=== PATIENT | female | born 1950 | race Native Hawaiian/Other Pacific Islander ===

== ENCOUNTER 2017-11-04 12:55 | Outpatient (CLI) | payer OTHER ==
[2017-11-04 14:16] LABS: PLATELET COUNT 217 K/uL (152-353)
== END 2017-11-04 19:55 | disposition home or self-care (01) ==
LOC: LAB 12:55
PROVIDERS: Nurse Practitioner Family
DX: Z00.00 Encounter for general adult medical examination without abnormal findings (principal); E66.9 Obesity, unspecified; E78.5 Hyperlipidemia, unspecified; Z79.899 Other long term (current) drug therapy
CPT/HCPCS: 80053; 80061; 83036; 84436; 84443; 85027

== ENCOUNTER 2018-12-07 08:53 | Outpatient (CLI) | payer OTHER | END 2018-12-07 21:49 | disposition home or self-care (01) | LOC: MAMMO 08:53 | DX: Z12.31 Encounter for screening mammogram for malignant neoplasm of breast (principal) ==

== ENCOUNTER 2019-03-05 09:56 | Emergency (ER) | payer OTHER ==
[~2019-03-05] VITALS: Ht 160 cm; Wt 72.6 kg
[2019-03-05 10:02] VITALS: TEMP 98.3
[2019-03-05 12:04] VITALS: BP 172/77
== END 2019-03-05 12:04 | disposition home or self-care (01) ==
LOC: ED 09:56
PROC: 0HQFXZZ Repair Right Hand Skin, External Approach (ICD-10-PCS; principal; 2019-03-05)
DX: S61.411A Laceration without foreign body of right hand, initial encounter (principal); W22.8XXA Striking against or struck by other objects, initial encounter; Y92.89 Other specified places as the place of occurrence of the external cause
CPT/HCPCS: 90471; 90715; 99283; J7040

== ENCOUNTER 2019-03-07 10:01 | Emergency (ER) | payer OTHER ==
[~2019-03-07] VITALS: Ht 160 cm; Wt 72.6 kg
[2019-03-07 10:14] VITALS: TEMP 97.9
[2019-03-07 10:30] VITALS: BP 167/81
== END 2019-03-07 10:34 | disposition home or self-care (01) ==
LOC: ED 10:01
DX: Z48.00 Encounter for change or removal of nonsurgical wound dressing (principal)
CPT/HCPCS: J7040

== ENCOUNTER 2019-03-14 10:32 | Emergency (ER) | payer OTHER ==
[~2019-03-14] VITALS: Ht 154.9 cm; Wt 72.6 kg
[2019-03-14 11:01] VITALS: BP 198/85; TEMP 98
== END 2019-03-14 11:01 | disposition home or self-care (01) ==
LOC: ED 10:32
DX: Z48.02 Encounter for removal of sutures (principal)

== ENCOUNTER 2019-12-19 09:55 | Outpatient (CLI) | payer OTHER | END 2019-12-19 23:22 | disposition home or self-care (01) | LOC: US 09:55 | DX: M79.89 Other specified soft tissue disorders (principal) ==

== ENCOUNTER 2020-12-05 09:01 | Outpatient (CLI) | payer OTHER | END 2020-12-05 19:02 | disposition home or self-care (01) | LOC: MAMMO 09:01 | PROVIDERS: ATTEND Specialist | DX: Z12.31 Encounter for screening mammogram for malignant neoplasm of breast (principal) ==

== ENCOUNTER 2021-12-31 09:54 | Outpatient (CLI) | payer OTHER | END 2021-12-31 19:10 | disposition home or self-care (01) | LOC: MAMMO 09:54 | PROVIDERS: ATTEND Specialist | DX: Z12.31 Encounter for screening mammogram for malignant neoplasm of breast (principal) ==

== ENCOUNTER 2023-01-04 10:27 | Outpatient (CLI) | payer OTHER | END 2023-01-04 18:54 | disposition home or self-care (01) | LOC: MAMMO 10:27 | PROVIDERS: ATTEND Specialist | DX: Z12.31 Encounter for screening mammogram for malignant neoplasm of breast (principal) ==